=== PATIENT | female | born 1990 | race Caucasian/White ===

== ENCOUNTER 2020-12-15 17:34 | Emergency (ER) | payer MEDICAID, OTHER ==
[~2020-12-15] VITALS: Ht 157.5 cm; Wt 71.0 kg
[2020-12-15] MEDS ORDERED: OMNIPAQUE 350 MG/ML, 100ML BOTTLE ONE (18:00)
[2020-12-15] MEDS ORDERED: SODIUM CHLORIDE FLUSH 10ML SYR IVF ONE (18:30)
--- NOTE | 2020-12-15 18:43 | NUR ---
FIRST ENCOUTNER: PT PRESENTED TO ED D/T LEFT SIDED TOOTH PAIN. PT STATES "I THINK I HAVE AN INFECTION." PT ALSO STATES SWELLING AND PAIN TO LEFT SIDE OF FACE.
[2020-12-15] MEDS ORDERED: METH40TA3 PO (18:44)
[2020-12-15 18:46] LABS: BASOPHILS % (AUTO) 1 % (0-1); EOSINOPHILS % (AUTO) 1 % (1-7); LYMPHOCYTES % (AUTO) 20 % (22-44); MD NO; MEAN CORPUSCULAR HGB CONC 33.5 g/dL (32.4-35.8); MEAN PLATELET VOLUME 7.3 fL (7.4-10.4); MONOCYTES % (AUTO) 7 % (2-9); NEUTROPHILS % (AUTO) 71 % (42-75); PLATELET COUNT 315 x10^3/uL (130-400); RED BLOOD COUNT 4.71 x10^6/uL (3.82-5.3); RED CELL DISTRIBUTION WIDTH 15.6 % (9.6-15.2)
[2020-12-15 18:55] LABS: ALBUMIN 3.9 g/dL (3.4-5.0); ANION GAP 9 mmol/L (5-15); CALCIUM 9.4 mg/dL (8.5-10.1); CHLORIDE 110 mmol/L (98-107); CREATININE 0.78 mg/dL (0.55-1.02)
--- NOTE | 2020-12-15 18:56 | NUR ---
PIV ACCESS OBTAINED. 20 R AC. REPORT TO [place].
--- NOTE | 2020-12-15 18:56 | NUR ---
REPORT FROM KOFFI HERMOSILLO
[2020-12-15 20:43] VITALS: BP 99/63
== END 2020-12-15 20:45 | disposition home or self-care (01) ==
LOC: ED 20:36
DX: K04.7 Periapical abscess without sinus (principal); F17.210 Nicotine dependence, cigarettes, uncomplicated; R51.9 Headache, unspecified
CPT/HCPCS: 36415; 70491; 80048; 82040; 85025; 99285; 99406; Q9967

== ENCOUNTER 2021-05-11 11:36 | Emergency (ER) | payer MEDICAID ==
[~2021-05-11] VITALS: Ht 157.5 cm; Wt 80.0 kg
[~2021-05-11 11:36] MED LIST: METH40TA3 PO
--- NOTE | 2021-05-11 12:55 | NUR ---
PT HERE C/O WITHDRAWAL FROM METHADONE, HAS NOT TAKEN METHADONE X2 DAYS DUE TO [facility] CLINIC CLOSED.
--- NOTE | 2021-05-11 12:56 | NUR ---
TAKES 125MG METHADONE DAILY.
[2021-05-11] MEDS ORDERED: ONDANSETRON ODT 4 MG ONE (13:18)
[2021-05-11] MEDS ORDERED: PROMETHAZINE 25 MG/ML, 1ML ONE (13:55)
[2021-05-11] MEDS ORDERED: PROMETHAZINE 25 MG/ML, 1ML IM ONE (14:00)
[2021-05-11] MEDS ORDERED: SODIUM CHLORIDE FLUSH 10ML SYR IVF ONE (14:00)
[2021-05-11] MEDS ORDERED: ONDANSETRON 2MG/ML, 2ML IVPush ONE (14:00)
[2021-05-11] MEDS ORDERED: SODIUM CHLORIDE 0.9% 1,000ML IVBOLUS ONE (14:00)
[2021-05-11 14:07] LABS: BASOPHILS % (AUTO) 0 % (0-1); EOSINOPHILS % (AUTO) 0 % (1-7); LYMPHOCYTES % (AUTO) 8 % (22-44); MEAN CORPUSCULAR HEMOGLOBIN 31.5 pg (27.0-34.8); MEAN PLATELET VOLUME 7.7 fL (7.4-10.4); MONOCYTES % (AUTO) 2 % (2-9); NEUTROPHILS % (AUTO) 89 % (42-75); PLATELET COUNT 190 x10^3/uL (130-400); RED BLOOD COUNT 3.65 x10^6/uL (3.82-5.3); RED CELL DISTRIBUTION WIDTH 14.6 % (9.6-15.2)
--- NOTE | 2021-05-11 14:10 | NUR ---
IV PLACED, ORDERED FLUIDS INFUSING. PT MEDICATED PER EMAR FOR NAUSEA. PT LAYING UPSIDE DOWN IN BED AND MOVING COVERS AROUND FURIOUSLY. MALE FRIEND AT BEDSIDE. WILL CONTINUE TO MONITOR.
[2021-05-11 14:14] LABS: ALANINE AMINOTRANSFERASE 11 U/L (12-78); ALBUMIN 2.9 g/dL (3.4-5.0); ANION GAP 8 mmol/L (5-15); CALCIUM 8.5 mg/dL (8.5-10.1); CHLORIDE 107 mmol/L (98-107); CREATININE 0.61 mg/dL (0.55-1.02)
[2021-05-11 14:18] LABS: ALKALINE PHOSPHATASE 104 U/L (45-117); BILIRUBIN,TOTAL 0.3 mg/dL (0.2-1.0); TOTAL PROTEIN 6.9 g/dL (6.4-8.2)
--- NOTE | 2021-05-11 14:41 | NUR ---
JUST INFORMED PT IS . ERP ASKED THIS RN TO HOLD CLONIDINE AT THIS TIME.
--- NOTE | 2021-05-11 15:21 | NUR ---
PT RETURNING FROM [facility]
[2021-05-11 16:07] VITALS: BP 127/76
== END 2021-05-11 16:08 | disposition home or self-care (01) ==
LOC: ED 12:22
DX: O99.012 Anemia complicating pregnancy, second trimester (principal); O21.8 Other vomiting complicating pregnancy; Z32.01 Encounter for pregnancy test, result positive; F11.20 Opioid dependence, uncomplicated; Z3A.24 24 weeks gestation of pregnancy
CPT/HCPCS: 36415; 76801; 80053; 84702; 84703; 85025; 96360; 96372; 99285; J2550; J7030